=== PATIENT | male | born 1940 | race Caucasian/White ===

== ENCOUNTER 2019-03-14 12:12 | Emergency (ER) | payer MEDICARE ==
--- NOTE | 2019-03-14 12:38 | ED ---
HPI Chest Pain - HPI Summary HPI Summary: A 78 y/o M presents to ED with c/o acute on chronic upper CP initial onset years ago, and happening about 4x a week currently. He describes the pain as "discomfort." [facility] and [facility]. CP comes on at the end of the day, when's relaxing, watching TV. Exertion, movement do not aggravate the pain. Denies, SOB, nausea, abd pain. PMHx: HDL, shingles. Daily medications include eye drops, Acyclovir, statin. Non-smoker. Pt was in the [employer] for 4 years. - History of Current Complaint Chief Complaint: EDChestPainROMI Time Seen by Provider: 03/14/19 12:37 Hx Obtained From: Patient, Family/On Site Coordinator - Onset/Duration: Atraumatic Current Severity: None Pain Intensity: 0 Pain Scale Used: 0-10 Numeric Chest Pain Location: Discrete at: - upper chest, L and R at times Character: Other: - discomfort Aggravating Factor(s): Nothing Associated Signs and Symptoms: Positive: Negative. Negative: Shortness of Breath, Nausea, Abdominal Pain - Allergy/Home Medications Allergies/Adverse Reactions: Allergies Allergy/AdvReac Type Severity Reaction Status Date / Time No Known Allergies Allergy Verified 03/14/19 12:16 Home Medications: Home Medications Acyclovir* [Zovirax 200 MG CAP*] 200 mg PO DAILY 03/14/19 [History Confirmed ] Aspirin TAB* [Aspirin 325 MG TAB*] 325 mg PO DAILY 03/14/19 [History Confirmed 03/14/19] Atorvastatin* [Lipitor*] 40 mg PO DAILY 03/14/19 [History Confirmed 03/14/19] Calcium Carbonate/Vitamin D3 [Calcium Carbonate/Vitamin] 1 tab PO DAILY [History Confirmed 03/14/19] Glucosam/Chondr/Collagn/Hyalur [Th Glucosamine/Chondroiti] 1 cap PO DAILY [History Confirmed 03/14/19] Multivitamins/Minerals TAB* [Theragran/minerals TAB*] 1 tab PO DAILY 03/14/19 [ History Confirmed 03/14/19] Lamoni-3 Fatty Acids (Nf) [Fish Oil (NF)] 2,000 mg PO DAILY 03/14/19 [History Confirmed 03/14/19] Saw [place] Fruit [Saw [place]] 450 mg PO DAILY 03/14/19 [History Confirmed ] Sildenafil Citrate [Viagra] 100 mg PO DAILY PRN 03/14/19 [History Confirmed ] prednisoLONE 0.12% OPTH.SUSP* [Pred Mild 0.12% Opth.SUSP*] 1 drop LEFT EYE DAILY 03/14/19 [History Confirmed 03/14/19] PMH/Surg Hx/FS Hx/Imm Hx Previously Healthy: No - shingles Cardiovascular History: Reports: Hx Hypercholesterolemia Infectious Disease History: No Infectious Disease History: Denies: Traveled Outside the [place] in Last 30 Days - Social History Occupation: Retired Lives: With Family Hx Tobacco Use: No Review of Systems Positive: Chest Pain Negative: Shortness Of Breath Negative: Abdominal Pain, Nausea All Other Systems Reviewed And Are Negative: Yes Physical Exam - Summary Physical Exam Summary: Appearance: Well-appearing, Well-nourished, lying in bed comfortably Skin: Warm, dry, no obvious rash Eyes: sclera anicteric, no conjunctival pallor ENT: mucous membranes moist, pharynx appears normal Neck: Supple, nontender Respiratory: Clear to auscultation, no signs of respiratory distress Cardiovascular: Normal S1, S2. No murmurs. Normal distal pulses in tibial and radial bilaterally. Abdomen: Soft, nontender, normal active bowel sounds present Musculoskeletal: Normal, Strength/ROM Intact Neurological: A&Ox3, awake and alert, mentation is normal, speech is fluent and appropriate Psychiatric: affect is normal, does not appear anxious or depressed Triage Information Reviewed: Yes Vital Signs On Initial Exam: Initial Vitals Temp Pulse Resp BP Pulse Ox 98.0 F 83 16 164/82 97 03/14/19 12:14 03/14/19 12:14 03/14/19 12:14 03/14/19 12:14 03/14/19 12:14 Vital Signs Reviewed: Yes Diagnostics - Vital Signs Vital Signs Temp Pulse Resp BP Pulse Ox 03/14/19 12:14 98.0 F 83 16 164/82 97 - Laboratory Result Diagrams: 03/14/19 12:53 03/14/19 12:53 Lab Statement: Any lab studies that have been ordered have been reviewed, and results considered in the medical decision making process. - Radiology CXR Radiology Interpretation Completed By: Radiologist Summary of Radiographic Findings: IMPRESSION: No active cardiopulmonary disease. ED provider has reviewed this report. - EKG 1223 Cardiac Rate: NL - 78 bpm EKG Rhythm: Sinus Rhythm Summary of EKG Findings: NSR at 78 BPM, P waves, QRS complex, and T waves are within normal limits, T waves and intervals are normal, no ischemic changes. Chest Pain Course/Dx - Course Course Of Treatment: Pt is 78 y/o M sent from the [place] for acute on chronic upper chest discomfort initial onset years ago, and happening about 4x a week currently. Onset usually at night, while at rest, nothing aggravates the pain. Denies, SOB, nausea, abd pain. [facility] Labwork is WNL. EKG is NSR at 78 BPM, P waves, QRS complex, and T waves are within normal limits, T waves and intervals are normal, no ischemic changes. CXR shows no active cardiopulmonary dz. Pt will be discharged. - Diagnoses Provider Diagnoses: Chest pain Discharge - Sign-Out/Discharge Documenting (check all that apply): Patient Departure - DC Patient Received Moderate/Deep Sedation with Procedure: No - Discharge Plan Condition: Good Disposition: HOME Patient Education Materials: Chest Pain (ED) Referrals: Wilfredo Palumbo MD [Primary Care Provider] - 1 Week Additional Instructions: Contact your regular doctor for followup. You may need further evaluation, perhaps a stress test, but we did not find anything immediately worrisome in your tests here today. - Billing Disposition and Condition Condition: GOOD Disposition: Home - Attestation Statements Document Initiated by Scribe: Yes Documenting Scribe: Mariam Sheth Provider For Whom Lizzieibe is Documenting (Include Credential): Dr. Isma Patel MD Scribe Attestation: I, lizzie Chowdhuryibed for Dr. Isma Patel MD on 03/17/19 at 0623. Scribe Documentation Reviewed: Yes Provider Attestation: The documentation as recorded by the Mariam [place] accurately reflects the service I personally performed and the decisions made by me, Dr. Isma Patel MD Status of Scribe Document: Viewed
[2019-03-14 13:04] LABS: ABS Basophils 0.1 10^3/ul (0-0.2); ABS Eosinophils 0.2 10^3/ul (0-0.6); ABS Lymphocytes 1.8 10^3/ul (1.0-4.8); ABS Monocytes 0.5 10^3/ul (0-0.8); ABS Neutrophils 2.5 10^3/ul (1.5-7.7); ABS Nucleated RBC 0 10^3/ul; Eosinophil % 3.3 %; Hematocrit 44 % (36-46); Hemoglobin 14.7 g/dL (14.0-18.0); Lymphocyte % 36.4 %; Mean Corpuscular HGB Conc 34 g/dL (31-36); Mean Corpuscular Hemoglobin 31 pg (27-31); Mean Corpuscular Volume 92 fL (80-94); Mean Platelet Volume 8.9 fL (7.4-10.4); Nucleated Red Blood Cells % 0.1; Platelet Count 193 10^3/uL (150-450); Red Blood Count 4.73 10^6 /uL (4.18-5.48); Red Cell Distribution Width 13 % (10.5-15); White Blood Count 5.1 10^3/uL (3.5-10.8)
[2019-03-14 13:22] LABS: Albumin/Globulin Ratio 1.5 (1-3); BUN/Creatinine Ratio 19.8 (8-20); EGFR African American 104.6 (>60); EGFR Non-African American 86.5 (>60); Globulin 2.7 g/dL (2-4); Potassium 4.1 mmol/L (3.5-5.0); Total Bilirubin 0.6 mg/dL (0.2-1.0); Total Protein 6.7 g/dL (6.4-8.9)
[2019-03-14 13:23] LABS: Troponin I 0.01 ng/mL (<0.04)
[2019-03-14 14:28] VITALS: BP 121/70
== END 2019-03-14 14:28 | disposition home or self-care (01) ==
LOC: ED 12:12
DX: R07.9 Chest pain, unspecified (principal); E78.00 Pure hypercholesterolemia, unspecified; R94.31 Abnormal electrocardiogram [ECG] [EKG]; Z79.82 Long term (current) use of aspirin; Z79.899 Other long term (current) drug therapy
CPT/HCPCS: 36415; 71046; 80053; 84484; 85025; 93005; 99283